=== PATIENT | male | born 1980 | race Caucasian/White ===

== ENCOUNTER 2016-10-18 16:00 | Inpatient (IN) | payer OTHER ==
--- NOTE | ~2016-10-18 | PA ---
Unit #: [id number] #: [id number] Patient: TOBIAS TERRELL [id number] [facility] [address] [place] [address] [id number] I MR#: [id number] NAME: TOBIAS TERRELL. ROOM: 74 Age: 36 Sex: M Admission Date: 10/18/2016 : 1980 Date of Assessment: 10/19/2016 Attending Physician: Emily Llamas M.D. Admitting Physician: Emily Llamas M.D. Primary Care Physician: Primary Care Physician No PSYCHIATRIC ASSESSMENT DATE OF SERVICE 10/19/2016. IDENTIFYING DATA Mr. Terrell is a 36-year-old single white male, who is a resident of [place], [place], and is known to us from previous encounter, was self-referred to the hospital on a voluntary basis. CHIEF COMPLAINT "I need help with my drug usage." HISTORY OF PRESENT ILLNESS Mr. Terrell is a 36-year-old white male with history of substance abuse and mood disorder, who was self-referred to the hospital, reporting increasing depression, anxiety, irritability, restlessness, feelings of hopelessness and helplessness, and suicidal ideations. Reported that he had history of suicide attempts in the past and has attempted to overdose on drugs in the past and also history of cutting behavior in the past. He reports that on Wednesday, he attempted suicide and was unable to contract for safety and as such, recommendation for inpatient level of care for safety and stabilization was made and the patient was transferred to us. SUBSTANCE ABUSE HISTORY The patient reports history of substance abuse and dependence. More recently, he reports that he has been using alcohol, cannabis, cocaine, opioids, amphetamines, and benzodiazepines. PAST PSYCHIATRIC HISTORY The patient has a history of inpatient psychiatric hospitalization in the past, and review of the medical records indicate currently is not active in any treatment program, is not seeing a psychiatrist, and not taking any psychotropic medications. PAST MEDICAL HISTORY Significant for hepatitis C and history of withdrawal seizures. ALLERGIES No known . Dictated by... Unit #: [id number] #: [id number] Patient: TOBIAS TERRELL Eimly Llamas M.D. IAA/modl TD: 10/19/2016 06:36 JOB #: [id number] PSYCHIATRIC ASSESSMENT Page 1 of 1 X Emily Llamas MD PSYCHIATRIC ASSESSMENT
--- NOTE | ~2016-10-18 | HP ---
Unit #: [id number] #: [id number] Patient: ALEXIS TERRELL [id number] [place] [address] [id number] I MR#: [id number] NAME: ALEXIS TERRELL. ROOM: P174 Age: 36 Sex: M Admission Date: 10/18/2016 : 1980 Attending Physician: Emily Llamas M.D. Admitting Physician: Emily Llamas M.D. Primary Care Physician: Primary Care Physician No HISTORY AND PHYSICAL HISTORY OF PRESENT ILLNESS Alexis is a 36 year old admitted to [facility] because of his continued illicit substance abuse which includes IV heroin. He has had other admissions to this facility for treatment of the same. PAST MEDICAL HISTORY 1. Long history of illicit substance abuse to include IV drugs. 2. Hepatitis C. 3. History of withdrawal seizures, benzodiazepines. PAST SURGICAL HISTORY Nothing reported ALLERGIES No known drug allergies. SOCIAL HISTORY Smokes one pack per day. Drinks alcohol rarely. Has a history of poly illicit substance abuse to include IV drugs. FAMILY HISTORY Medically noncontributory. REVIEW OF SYSTEMS CONSTITUTIONAL: No fever or chills. HEENT: Denies any sore throat, ear pain or runny nose. CARDIOVASCULAR: Denies chest pain, irregular heart rhythm or palpitations. CHEST: Denies shortness of breath or cough. No hemoptysis. GASTROINTESTINAL: Denies nausea, vomiting, diarrhea or chronic constipation. ENDOCRINE: Denies history of increased thirst or urination. No recent significant weight loss or gain. GENITOURINARY: Denies dysuria, frequency, or hematuria. SKIN: Denies any rashes. HEMATOLOGIC: Denies history of increased bleeding or bruising. MUSCULOSKELETAL: Denies any hot, swollen joints. No generalized muscle pain. NEUROLOGIC: Denies problems with vision or speech. No frequent, severe headaches. No numbness, tingling or weakness in any extremities. Denies loss of bladder or bowel control. Unit #: [id number] #: [id number] Patient: ALEXIS TERRELL CURRENT MEDICATIONS Detox protocol PHYSICAL EXAMINATION GENERAL: Alert, well-nourished, in no apparent distress. VITAL SIGNS: Blood pressure 100/62, heart rate 80, respirations 16, temperature 98.6. WEIGHT: 170 pounds. HEIGHT: 6 foot 0 inches SKIN: Warm and dry without rash or lesion. HEENT: Normocephalic. TMs not viewed. Oral and nasal passages clear. Conjunctivae clear. Pupils equal, round and reactive to light and accommodation. Extraocular movements intact. NECK: Supple without lymphadenopathy or thyromegaly. HEART: Regular rate and rhythm without murmur. LUNGS: Clear. ABDOMEN: Soft, nontender. : Not done. EXTREMITIES: No evidence of cyanosis, clubbing or edema. Moves all extremities without focal deficit. NEUROLOGICAL: Grossly within normal limits. Cranial Nerves: II: Visual diaz are intact. III, IV AND : Extraocular movements are intact. Pupils are equal, round and reactive to light. V: Facial sensation is grossly normal. VII: Facial movements and expression are normal. VIII: Auditory acuity grossly intact. IX, X: Uvula is midline. Phonation is normal. XI: Patient shrugs shoulders and turns head normally. XII: Tongue protrudes in the midline. Sensory and Motor Function: Sensory and motor sensation is grossly normal. Motor: moves all extremities well. Coordination: Gait is normal. Deep Tendon Reflexes: Intact. IMPRESSION Psychiatric admission RECOMMENDATIONS PSYCHIATRIC: Per psychiatrist. MEDICAL: I see no contraindications to participating in facility's activities. MEDICAL PROGNOSIS Good. MEDICAL CONDITION Stable. Dictated by... Nerissa Puentes PWilliamAWilliam-Toño. for Dwayne Gant/domi TD: 10/20/2016 06:26 Unit #: [id number] #: [id number] Patient: ALEXIS TERRELL JOB #: [id number] HISTORY AND PHYSICAL Page 1 of 1 X Nerissa Puentes X HISTORY AND PHYSICAL
--- NOTE | ~2016-10-18 | PN ---
Unit #: [id number] #: [id number] Patient: TOBIAS TROTTER [id number] [facility] [address] [place] [address] [id number] I MR#: [id number] NAME: TOBIAS TROTTER. ROOM: P174 Age: 36 Sex: M Admission Date: 10/18/2016 : 1980 Attending Physician: Emily Llamas M.D. Admitting Physician: Emily Llamas M.D. Primary Care Physician: Primary Care Physician Emily GUEVARA PROGRESS NOTES DATE 10/20/2016 DISCUSSION Mr. Trotter is a 36-year-old white male who was seen today and chart was reviewed and case was discussed with the staff. He has been anxious, withdrawn though has not shown any agitation, irritability. Meanwhile, he has been taking medications and tolerating them fairly well with no reported side effects. MENTAL STATUS EXAMINATION Young white male who was casually dressed with fair personal hygiene and appears to be in no acute distress or discomfort. He was awake and alert on interaction with intact orientation. His mood was anxious with congruent affect. He denies any suicidal or homicidal ideation. His insight and judgement remains slightly impaired. TREATMENT PLAN 1. Will continue his current medications and treatment protocol. Will monitor his response to the medications and make further adjustments as needed. 2. Will continue to follow up. Dictated by... Dwayne Walton/samara TD: 10/21/2016 17:31 JOB #: [id number] Unit #: [id number] #: [id number] Patient: TOBIAS TROTTER PEADIANNE PROGRESS NOTES Page 1 of 1 X Emily Llamas MD X PROGRESS NOTE
--- NOTE | ~2016-10-18 | DS ---
Unit #: [id number] #: [id number] Patient: [facility]AS TERRELL [id number] [facility] [address] [place] [address] [id number] I MR#: [id number] NAME: TOBIAS TERRELL. ROOM: [facility] Age: 36 Sex: M Admission Date: 10/18/2016 : 1980 Discharge Date: 10/21/2016 Attending Physician: Emily Llamas M.D. Primary Care Physician: Primary Care Physician No DISCHARGE SUMMARY IDENTIFYING DATA Mr. Terrell is a 36-year-old single white male who is a resident of [place], [place] and was self-referred to the hospital on a voluntary basis. DISCHARGE DIAGNOSES Psychiatric: Opioid dependence, moderate, in acute withdrawals; benzodiazepine dependence, moderate; opioid-induced mood disorder. Medical: Hepatitis C, history of withdrawal seizures. Stressors: Moderate psychosocial stressors. HISTORY OF PRESENT ILLNESS Please see initial psychiatric evaluation for details. PAST PSYCHIATRIC HISTORY Please see initial psychiatric evaluation for details. PAST MEDICAL HISTORY Please see initial psychiatric evaluation for details. HOSPITAL COURSE The patient [facility] and was oriented to the hospital environment. Routine p.r.n. medications were initiated, and he was started back on his home medications and detox protocol was initiated and was closely monitored. He was taking the medications regularly and was tolerating them fairly well and was able to show a decent therapeutic response and was willing to continue treatment on an outpatient basis, and as such, it was decided that he will be discharged home and will continue treatment on an outpatient basis. DISCHARGE MEDICATIONS None. DISCHARGE CONDITION Stable. PROGNOSIS Guarded. Dictated by... Emily Llamas M.D. Unit #: [id number] #: [id number] Patient: TOBIAS TERRELL IAA/modl TD: 10/21/2016 07:08 JOB #: [id number] DISCHARGE SUMMARY Page 1 of 1 X Emily Llamas MD DISCHARGE SUMMARY
[2016-10-19 09:38] LABS: EOSINOPHIL# 0.2 X10e3 (0-0.7); EOSINOPHIL% 4.7 % (0.0-7.0); HEMATOCRIT 40.7 % (38.0-50.0); HEMOGLOBIN 13.6 gm/dL (13.0-16.0); LYMPHOCYTE# 1.9 X10e3 (1.0-3.5); LYMPHOCYTE% 46.6 % (17.0-45.0); MEAN CELL VOLUME 86.3 FL (83-96); MEAN CORPUSCULAR HEMOGLOBIN 28.7 PG (28-34); MEAN CORPUSCULAR HGB CONC 33.3 g/dL (30-36); MEAN PLATELET VOLUME 10.5 FL (6.5-11.5); MONOCYTE# 0.5 X10e3 (0-1.0); MONOCYTE% 12.9 % (3.0-12.0); NEUTROPHIL# 1.4 X10e3 (1.5-7.1); NEUTROPHIL% 34.8 % (40-75); PLATELET COUNT 150 X10e3 (140-420); RED BLOOD COUNT 4.72 X10e (3.90-5.60); RED CELL DISTRIBUTION WIDTH 14.4 % (11.0-15.5); WHITE BLOOD COUNT 4.1 X10e3 (4.0-10.5)
[2016-10-19 09:46] LABS: URINE APPEARANCE CLEAR; URINE BILIRUBIN NEG (NEG); URINE BLOOD NEG (NEG); URINE COLOR DK YELLOW; URINE GLUCOSE NEG (NEG); URINE KETONE TRACE (NEG); URINE LEUKOCYTE ESTERASE NEG (NEG); URINE NITRATE NEG (NEG); URINE PH 6.5 (5-8); URINE PROTEIN NEG (NEG); URINE SPECIFIC GRAVITY 1.027 (1.003-1.035)
[2016-10-19 09:52] LABS: ALBUMIN SERUM 3.7 g/dL (3.5-5.0); BILIRUBIN,TOTAL 0.2 mg/dL (0.2-2.0); CALCIUM SERUM 9.2 mg/dL (8.4-10.2); CREATININE SERUM 0.8 mg/dL (0.6-1.4); GLOM FILT RATE Estimated 116.6 mL/min (>60); POTASSIUM 4.5 mmol/L (3.5-5.1); PROTEIN TOTAL SERUM 6.7 g/dL (6.0-8.3)
[2016-10-19 09:54] LABS: DIFF IND NO
[2016-10-19 09:57] LABS: AMPHETAMINE NEG (NEG); BARBITURATES NEG (NEG); BENZODIAZEPINES NEG (NEG); COCAINE NEG (NEG); MARIJUANA NEG (NEG); OPIATES POS (NEG); TRICYCLIC ANTIDEPRESSANTS NEG (NEG); U METHADONE NEG (NEG)
== END 2016-10-21 12:45 | DRG 897 ==
LOC: P1E 19:16
PROVIDERS: Psychiatry & Neurology Psychiatry
PROC: HZ2ZZZZ Detoxification Services for Substance Abuse Treatment (ICD-10-PCS; principal; 2016-10-18)
DX: F11.23 Opioid dependence with withdrawal (principal); F13.20 Sedative, hypnotic or anxiolytic dependence, uncomplicated; F11.24 Opioid dependence with opioid-induced mood disorder; B19.20 Unspecified viral hepatitis C without hepatic coma; F17.210 Nicotine dependence, cigarettes, uncomplicated
CPT/HCPCS: 80053; 80307; 81003; 85025; 86592

== ENCOUNTER 2016-11-09 19:00 | Inpatient (IN) | payer OTHER ==
--- NOTE | ~2016-11-09 | PN ---
Unit #: [id number] #: [id number] Patient: TOBIAS TROTTER [id number] [facility] [address] [place] [address] [id number] MR#: [id number] NAME: TOBIAS TROTTER. ROOM: P184 Age: 36 Sex: M Admission Date: 11/09/2016 : 1980 Attending Physician: Emily Llamas M.D. Admitting Physician: Emily Llamas M.D. Primary Care Physician: Primary Care Physician Emily TOSCANO NOTES DATE 11/11/2016 DISCUSSION Mr. Trotter is a 36-year-old white male who was seen today and chart was reviewed and case was discussed with the staff. He has been anxious, withdrawn and rather seclusive to himself. Meanwhile, he has been cooperative with treatment recommendations and has been taking medications and following them fairly well with no reported side effects. MENTAL STATUS EXAMINATION Young white male who was casually dressed with fair personal hygiene and appears to be in no acute distress or discomfort. He was awake and alert on interaction with intact orientation. His mood was anxious with congruent affect. He denies any suicidal or homicidal ideations. His insight and judgement remains slightly impaired. TREATMENT PLAN 1. Will continue on his current medications and treatment protocol. Will monitor his response to the medications and make further adjustments as needed. 2. Will continue to follow up. Dictated by... Dwayne Walton/samara TD: 11/11/2016 15:34 JOB #: [id number] Unit #: [id number] #: [id number] Patient: TOBIAS TROTTER ISMAEL PROGRESS NOTES Page 1 of 1 X Emily Llamas MD PROGRESS NOTE
--- NOTE | ~2016-11-09 | PA ---
Unit #: [id number] #: [id number] Patient: TOBIAS TERRELL [id number] [facility] [address] [place] [address] [id number] I MR#: [id number] NAME: TOBIAS TERRELL. ROOM: P184 Age: 36 Sex: M Admission Date: 11/09/2016 : 1980 Date of Assessment: 11/10/2016 Attending Physician: Emily Llamas M.D. Admitting Physician: Emily Llamas M.D. Primary Care Physician: Primary Care Physician No PSYCHIATRIC ASSESSMENT DATE OF SERVICE 11/10/2016. IDENTIFYING DATA Mr. Terrell is a 36-year-old single white male, who is a resident of [place], [place], and was self-referred to the hospital on a voluntary basis. CHIEF COMPLAINT "I relapsed, I'm really grief stricken and hopeless." HISTORY OF PRESENT ILLNESS A 36-year-old white male, who was self-referred to the hospital and reports "I was in here about 3 weeks ago and I was supposed to leave and go to outpatient. I was supposed to get the Vivitrol shot from [facility], but they have canceled my appointment. I was locked up and the home told me that they were going to throw out my mother's ashes and I was unable to get them and basically the next day after that, my sister in my arms. I relapsed after that. I'm really grief stricken and hopeless and I really need to get back in here and I get set up for the Vivitrol shot and get back into the outpatient program." The patient reports that the last couple of weeks ago, "I don't even know how long it has been I tried to stop and I got sick a couple of days ago." The patient reports that he has been using 2 to 3 g of IV heroin a day with the last use about 6 hours before coming to the hospital and reports increasing depression, anxiety, irritability, restlessness, feelings of hopelessness and helplessness, inability to function or perform activities of daily living and suicidal thoughts "come and go. I get overwhelmed and I can't see any opportunity to further future and everything is hopeless. I just visualized overdosing and being gone and being out of pain." As such, he was seen to be a danger to self and therefore recommendation for inpatient level of care for safety and stabilization was made and the patient was transferred to us. SUBSTANCE ABUSE HISTORY The patient reports extensive history of substance abuse and dependence including alcohol, cannabis, cocaine, opioids, amphetamines, and benzodiazepines, though currently, opioids appear to be his drug of choice as he reports that he has been using 2 to 3 g of IV heroin on daily basis. PAST PSYCHIATRIC HISTORY The patient has had history of inpatient chemical dependency treatment multiple times at [facility] in addition to being at [facility], and Unit #: [id number] #: [id number] Patient: TOBIAS TERRELL review of the medical records indicate that currently he is not active in treatment program, is not seeing a psychiatrist, not taking any psychotropic medications. PAST MEDICAL HISTORY Hepatitis C and history of withdrawal seizures. ALLERGIES No known medication allergies. CURRENT MEDICATIONS None. PERSONAL AND SOCIAL HISTORY A 36-year-old white male, who reports that he is single, unemployed, and essentially homeless and has poor social support system. MENTAL STATUS EXAMINATION Young white male who was casually dressed with fair personal hygiene, appears to be in no acute distress or discomfort. He was awake and alert on interaction with intact orientation to time, place, and person. His mood was anxious and depressed with a congruent affect. His speech was slow and goal directed. His thought processes were disorganized with some looseness of associations and suicidal ideations. His insight and judgment remain significantly impaired. DIAGNOSTIC IMPRESSION Psychiatric: Major depressive disorder, recurrent, moderate, without psychotic features; opioid dependence, moderate and acute withdrawals; methamphetamine dependence, moderate. Medical: History of withdrawal seizures and hypertension. Stressors: Moderate psychosocial stressors. TREATMENT PLAN 1. The patient has presented with history of substance abuse and mood disorder, and has been decompensating and will need inpatient hospitalization for detoxification, safety, and stabilization. We will start him back on his home medications. We will adjust the medications and monitor response. 2. Supportive therapy was provided to the patient. 3. Safe, structured, and nourishing environment will be provided. ESTIMATED LENGTH OF STAY 4 to 5 days. ABILITY TO HELP SELF Limited. WILLINGNESS TO HELP SELF The patient appears to be willing to help self. STRENGTHS 1. Communicative. 2. Cooperative. PROBLEMS 1. Chronic dysphoric symptoms. 2. Chronic chemical dependency. 3. Poor social support system. Unit #: [id number] #: [id number] Patient: TOBIAS TERRELL DISCHARGE CRITERIA This will be contingent upon the patient's ability to go through detox without having any significant withdrawal symptoms as well as his ability to stay safe to himself, particularly after discharge from the hospital. Dictated by... Dwayne Walton/shelly TD: 11/10/2016 07:20 JOB #: [id number] PSYCHIATRIC ASSESSMENT Page 1 of 1 X Emily Llamas MD X PSYCHIATRIC ASSESSMENT
--- NOTE | ~2016-11-09 | HP ---
Unit #: [id number] #: [id number] Patient: ALEXIS TERRELL [id number] [facility] [address] [place] [address] [id number] MR#: [id number] NAME: ALEXIS TERRELL. ROOM: P184 Age: 36 Sex: M Admission Date: 11/09/2016 : 1980 Attending Physician: Emily Llamas M.D. Admitting Physician: Emily Llamas M.D. Primary Care Physician: Primary Care Physician No HISTORY AND PHYSICAL NOTE Alexis is a 36 year old admitted to [facility] because of his continued drug use which includes IV heroin. He has had other admissions to this facility. The patient was seen and H and P dated 10/19/2016 was reviewed. This is current. No changes. Please see H and P dated 10/19/2016. Dictated by... Nerissa Puentes P.A.-C. for Dwayne Gant/domi TD: 11/11/2016 04:43 JOB #: [id number] HISTORY AND PHYSICAL Page 1 of 1 X Nerissa Puentes HISTORY AND PHYSICAL
--- NOTE | ~2016-11-09 | DS ---
Unit #: [id number] #: [id number] Patient: [facility] TROTTER [id number] [facility] [address] [place] [address] [id number] MR#: [id number] NAME: TOBIAS TROTTER. ROOM: 84 Age: 36 Sex: M Admission Date: 11/09/2016 : 1980 Discharge Date: 11/12/2016 Attending Physician: Emily Llamas M.D. Primary Care Physician: Primary Care Physician No DISCHARGE SUMMARY IDENTIFYING DATA Mr. Trotter is a 36-year-old white male with a history of substance abuse and dependence who is known to me from previous encounter was self-referred to hospital. DISCHARGE DIAGNOSES PSYCHIATRIC 1. Opioid dependence moderate in acute withdrawals. 2. Mood disorder. MEDICAL None. STRESSORS Mild psychosocial stressors. HISTORY OF PRESENT ILLNESS/PAST PSYCHIATRIC HISTORY/PAST MEDICAL HISTORY Please copy and paste from initial psychiatric evaluation HOSPITAL COURSE The patient was admitted to the adult chemical dependency unit at [facility] roderick Escobedo and was oriented to the hospital environment. Routine p.r.n. medications were initiated, and he was started back on his home medications and medications were adjusted and he was closely monitored. He was started on a detox protocol from opioids and was seen to be doing much better and was able to complete the detox without any complications and was willing to continue treatment on outpatient basis and he was denying any suicidal or homicidal ideations and as such it was decided that he will be discharged from our care and we will continue treatment on outpatient basis. DISCHARGE MEDICATIONS None. DISCHARGE CONDITION Stable. PROGNOSIS Fair. Unit #: [id number] #: [id number] Patient: TOBIAS TROTTER Dictated by... Dwayne Walton/domi TD: 12/04/2016 03:01 JOB #: [id number] DISCHARGE SUMMARY Page 1 of 1 X Emily Llamas MD X DISCHARGE SUMMARY
== END 2016-11-12 09:20 | DRG 885 ==
LOC: P1E 22:06
PROC: HZ2ZZZZ Detoxification Services for Substance Abuse Treatment (ICD-10-PCS; principal; 2016-11-09)
DX: F33.1 Major depressive disorder, recurrent, moderate (principal); F15.20 Other stimulant dependence, uncomplicated; R45.851 Suicidal ideations; F11.23 Opioid dependence with withdrawal; I10 Essential (primary) hypertension